=== PATIENT | male | born 1960 ===

== ENCOUNTER 2021-02-27 09:00 | Inpatient (IN) | payer OTHER ==
[~2021-02-27] VITALS: Ht 170.2 cm; Wt 113.4 kg
[2021-02-27] MEDS ORDERED: GABAPEN PO (10:22)
[2021-02-27] MEDS ORDERED: PLAVIX75 MG PO (10:23)
[2021-02-27] MEDS ORDERED: COZAAR100 MG PO (10:23)
[2021-02-27] MEDS ORDERED: LIPITOR40 M1 PO (10:23)
[2021-02-27] MEDS ORDERED: TRAMAD PO (10:24)
[2021-02-27] MEDS ORDERED: NORVASC5 MG PO (10:24)
[2021-03-05] MEDS ORDERED: ULTRAM50 MG PO (13:34)
[2021-03-05] MEDS ORDERED: GABAPENTIN800 M1 PO (13:34)
== END 2021-03-06 16:41 | DRG 470 ==
LOC: SURG 03-04 05:50 → O/R 03-04 05:50 → SURH 03-04 07:00 → SURG 03-04 15:23
PROVIDERS: ADMIT Orthopaedic Surgery; ATTEND Orthopaedic Surgery
PROC: 0SRC0J9 Replacement of Right Knee Joint with Synthetic Substitute, Cemented, Open Approach (ICD-10-PCS; principal; 2021-03-04 07:00)
DX: M17.11 Unilateral primary osteoarthritis, right knee (principal); D62 Acute posthemorrhagic anemia; I10 Essential (primary) hypertension

== ENCOUNTER 2021-05-06 07:30 | Day surgery (SDC) | payer OTHER ==
[~2021-05-06 07:30] MED LIST: COZAAR100 MG PO; GABAPEN PO; GABAPENTIN800 M1 PO; LIPITOR40 M1 PO; NORVASC5 MG PO; PLAVIX75 MG PO; TRAMAD PO; ULTRAM50 MG PO
[2021-05-06] MEDS ORDERED: PERCOCET 5-3251 EACH PO (14:09)
== END 2021-05-06 17:35 | disposition home or self-care (01) ==
LOC: CIR.AMB 07:30
PROVIDERS: ATTEND Orthopaedic Surgery
DX: T84.89XA Other specified complication of internal orthopedic prosthetic devices, implants and grafts, initial encounter (principal); M24.561 Contracture, right knee; Z20.822 Contact with and (suspected) exposure to COVID-19